=== PATIENT | female | born 1975 | race Caucasian/White ===

== ENCOUNTER → 2018-12-12 | Outpatient (CLI) | payer BC ==
--- NOTE | 2018-12-12 10:25 | MM ---
Reason for exam: additional evaluation requested from prior study. Last mammogram was performed 7 years and 2 months ago. History: Family history of breast cancer in mother and breast cancer in maternal grandmother. Benign excisional biopsy of the right breast. Took hormonal contraceptives for 2 years. Physical Findings: Nurse did not find any significant physical abnormalities on exam. MG 3D Diag Mammo W/Cad EBEN Bilateral CC and MLO view(s) were taken. Prior study comparison: November 14, 2017, mammogram. August 31, 2017, ultrasound. November 08, 2016, mammogram. The breast tissue is extremely dense which could obscure a lesion on mammography. No suspicious abnormality. Post surgical change on the right. No significant new findings when compared with previous films. These results were verbally communicated with the patient and result sheet given to the patient on 12/12/18. ASSESSMENT: Benign, BI-RAD 2 RECOMMENDATION: Routine screening mammogram of both breasts in 1 year.
--- NOTE | 2018-12-12 10:27 | USB ---
Reason for exam: additional evaluation requested from prior study. History: Family history of breast cancer in mother and breast cancer in maternal grandmother. Benign excisional biopsy of the right breast. Took hormonal contraceptives for 2 years. US Breast RT Right complete breast ultrasound includes all four quadrants, the retroareolar region and axilla. Finding demonstrates a 4 x 4 x 4mm cystic lesion at 12 o'clock prior 5 x 5 x 5mm on 11/14/17 and a 10 x 4 x 9mm cystic cluster of cysts at 9 o'clock. The other probably benign masses on the prior outside study are not reproduced and likely relate to resolved cysts. These results were verbally communicated with the patient and result sheet given to the patient on 12/12/18. ASSESSMENT: Benign, BI-RAD 2 RECOMMENDATION: Routine screening mammogram of both breasts in 1 year.
== END | disposition home or self-care (01) ==
LOC: RADMAMWWP 08:13
PROVIDERS: ATTEND Surgery
DX: R92.8 Other abnormal and inconclusive findings on diagnostic imaging of breast (principal)
CPT/HCPCS: 77062; 77066

== ENCOUNTER → 2019-11-14 | Outpatient (CLI) | payer BC ==
--- NOTE | 2019-11-14 18:30 | XR ---
EXAMINATION TYPE: XR toes RT DATE OF EXAM: 11/14/2019 COMPARISON: Right foot same date HISTORY: Stubbing injury fifth toe TECHNIQUE: Three-view right fifth digit FINDINGS: Soft tissue swelling is over the fifth digit right foot. Joint spaces are preserved. No dis placed fractures identified. IMPRESSION: 1. Prominent soft tissue swelling distal right fifth digit.
--- NOTE | 2019-11-14 18:31 | XR ---
EXAMINATION TYPE: XR foot complete RT DATE OF EXAM: 11/14/2019 COMPARISON: Right fifth digit same date HISTORY: Injury fifth digit TECHNIQUE: Three-view right foot FINDINGS: There is soft tissue swelling over the fifth digit. There is some angulation of the distal digit which may be old injury. No acute fractures evident. Mild soft tissue swelling may be over the distal fourth digit as well. Joint spaces are preserved. Plantar calcaneal heel spur is present. IMPRESSION: 1. Soft tissue swelling distal fourth and fifth digits. No acute displaced fractures identified. Fol low-up exams can be performed 7-10 days from acute trauma for continued pain.
== END | disposition home or self-care (01) ==
LOC: RADXRMAIN 18:09
PROVIDERS: ATTEND Internal Medicine Geriatric Medicine
DX: M79.89 Other specified soft tissue disorders (principal)

== ENCOUNTER 2022-05-06 06:23 | Day surgery (SDC) | payer BC ==
[2022-05-03 11:52] VITALS: BMI 25.2
--- NOTE | 2022-05-05 07:24 | P.HPOB ---
History of Present Illness H&P Date: 05/05/22 Chief Complaint: Dysfunctional uterine bleeding This patient is a pleasant 47-year-old 4 para 3 female whose had long- standing dysfunctional uterine bleeding that is interfering with daily activities. Patient's evaluation has included a normal pelvic ultrasound and also a normal endometrial biopsy. Patient and I have discussed options for treatment and she wishes to proceed with an endometrial ablation. Review of Systems Genitourinary: Reports as per HPI Menstruation: Reports menses variable, Reports period heavy Past Medical History Additional Past Medical History / Comment(s): EXCESSIVE AND FREQUENT MENSTRUAL CYCLES History of Any Multi-Drug Resistant Organisms: None Reported Past Surgical History: Breast Surgery, Orthopedic Surgery Additional Past Surgical History / Comment(s): RT BREAST BX-BENIGN. RT BUNIONECTOMY Past Anesthesia/Blood Transfusion Reactions: Postoperative Nausea & Vomiting (PONV) Past Psychological History: No Psychological Hx Reported Smoking Status: Never smoker Past Alcohol Use History: None Reported Past Drug Use History: None Reported - Past Family History Mother Family Medical History: Cancer Additional Family Medical History / Comment(s): BREAST Medications and Allergies Home Medications Medication Instructions Recorded Confirmed Type Fluticasone Nasal [place] [Flonase 2 spray EA NOSTRIL DAILY 05/03/22 05/03/22 History Nasal [place]] Allergies Allergy/AdvReac Type Severity Reaction Status Date / Time Penicillins Allergy Rash/Hives Verified 05/03/22 11:40 Sulfa (Sulfonamide Allergy Rash/Hives Verified 05/03/22 11:40 Antibiotics) Exam - OBG Physical Exam Abdomen: bowel sounds normal, no diffuse tenderness, no bruit present, no guarding noted, no hepatomegaly, no splenomegaly, no mass Vulva: both: normal Vagina: normal moisture, no discharge Cervix: no lesion, no discharge Uterus: normal size, normal contour Adnexa: both: normal Results Transvaginal ultrasound was normal and endometrial biopsy was normal as well. Assessment and Plan Assessment: This is a pleasant 47-year-old 4 para 3 female with long-standing dysfunctional uterine bleeding requesting endometrial ablation for treatment. Plan is hysteroscopy, D&C, and NovaSure endometrial ablation. The patient and I have discussed the surgery and risks and risks of infection, bleeding, possible uterine perforation, and/or thermal injury. All the patient's questions have been answered and a written consent is obtained. (1) Dysfunctional uterine bleeding Status: Acute Code(s): N93.8 - OTHER SPECIFIED ABNORMAL UTERINE AND VAGINAL BLEEDING SNOMED Code(s): 71071839281668
[~2022-05-06 06:23] MED LIST: DEXAMETHASONE SOD PHOSPHATE 4 MG/ML 1 ML VIAL IV ONE; LACTATED RINGERS 1,000 ML IV SCH; LIDOCAINE 1% (10MG/ML) FOR IV START INTRADERMA PRN; ONDANSETRON 4 MG/2 ML VIAL IVP ONE; Pre Op ABX Message 1 EACH MISC MISCELLANE ONE
[2022-05-06 06:51] VITALS: RESP 16
[2022-05-06] MEDS ORDERED: SCOPOLAMINE 1 MG/72 HR PATCH TRANSDERM ONE (06:52)
[2022-05-06] MEDS ORDERED: fentaNYL (PF) 50 MCG/ML 2 ML AMP IV PRN (07:00)
[2022-05-06] MEDS ORDERED: KETOROLAC 15 MG/ML 1 ML VIAL ONE (07:20)
[2022-05-06] MEDS ORDERED: MIDAZOLAM 2 MG/2 ML VIAL ONE (07:20)
[2022-05-06] MEDS ORDERED: fentaNYL (PF) 50 MCG/ML 2 ML AMP ONE (07:20)
[2022-05-06] MEDS ORDERED: PROPOFOL 10 MG/ML 20 ML VIAL IV ONE (07:20)
[2022-05-06] MEDS ORDERED: LIDOCAINE 2% INJ 20 MG/ML (2 ML VIAL) ONE (07:20)
--- NOTE | 2022-05-06 07:59 | P.OP ---
Date of Procedure: 05/06/22 Preoperative Diagnosis: Dysfunctional uterine bleeding Postoperative Diagnosis: Same Procedure(s) Performed: #1: Hysteroscopy. #2: Dilation and curettage. #3: NovaSure endometrial ablation Anesthesia: MAC Surgeon: Bernardo Conroy Estimated Blood Loss (ml): 20 Urine output (ml): 50 Pathology: other (Uterine curettings) Condition: stable Disposition: PACU Indications for Procedure: Please see dictated H&P for intimate details of this patient's admission. In brief summary this is a pleasant 47-year-old 4 para 3 female long- standing menorrhagia and dysfunctional bleeding who presents for trial of endometrial ablation for treatment. Patient understands this surgery and risks and risks of infection, bleeding, possible uterine perforation, and/or thermal injury. All the patient's questions are answered and a written consent is obtained. Operative Findings: This patient had a normal-appearing endometrial cavity Description of Procedure: This patient is taken to the operating room where she is laid supine position. She subsequent undergoes general mask anesthesia without incident. With an adequate level of anesthesia she's placed in dorsal lithotomy position. She has a vaginal perineal prep and drape. Examination under anesthesia shows a mid position uterus slightly enlarged. Weighted speculum placed in posterior vagina. Anterior lip of the cervix is gravid and Allis clamp. Uterus is then sounded to 10 cm. Gentle dilation of the cervix is done to allow the hysteroscope easily and the uterine cavity. Hysteroscopy is performed and endometrial cavity appears normal and measured a length of 6.0 cm. The hysteroscope was then removed and the cervix dilated more to allow a small curette easily uterine cavity a gentle but thorough 4 quadrant curettage is then done. With this done the NovaSure device is seated in place. It is measured a length of 6.0 cm it opens up to a width of 5.5 cm. It is then passes the cavity integrity test is then enabled 180 W setting for 61 seconds. NovaSure device is then removed. It appears to be intact. Hysteroscopy is then performed and the uterine cavity appears completely ablated up to the endocervix. With this done the procedure is then ended. The Allis clamp and weighted speculum removed. All counts are correct 3. There are no complications. Patient is awakened from anesthesia and taken recovery room satisfactory condition.
[2022-05-06 08:00] VITALS: TEMP 97.7
[2022-05-06] MEDS ORDERED: LACTATED RINGERS 1,000 ML IV ONE (08:35)
[2022-05-06 09:05] VITALS: BP 129/77; PULSE 64
== END 2022-05-06 09:42 | disposition home or self-care (01) ==
LOC: OR 06:23
PROVIDERS: ATTEND Obstetrics & Gynecology
DX: N93.8 Other specified abnormal uterine and vaginal bleeding (principal); N85.8 Other specified noninflammatory disorders of uterus; Z88.0 Allergy status to penicillin; Z88.2 Allergy status to sulfonamides
CPT/HCPCS: 81025; 58563; J2250; J1100; J2405; J3010; J1885; J2704; J2001; 88305

== ENCOUNTER → 2023-02-07 | Outpatient (CLI) | payer BC ==
[2023-02-07 10:58] LABS: Basophils # (A) 0.04 X 10*3/uL (0.00-0.10); Basophils % (A) 0.7 %; Eosinophils # (A) 0.15 X 10*3/uL (0.04-0.35); Eosinophils % (A) 2.6 %; HCT 38.4 % (37.2-46.3); HGB 12.7 d/dL (12.0-15.0); Lymphocytes # (A) 2.12 X 10*3/uL (0.90-5.00); Lymphocytes % (A) 37.1 %; MCH 31.4 pg (27.0-32.0); MCHC 33.1 d/dL (32.0-37.0); Mean Platelet Volume 11.9 FL (9.5-12.2); Monocytes % (A) 10.5 %; NRBC Per 100 WBC 0 X 10*3/uL (0.00-0.01); Neutrophils # (A) 2.78 X 10*3/uL (1.80-7.70); Neutrophils % (A) 48.7 %; Platelet Count 188 X 10*3/uL (140-440); RBC 4.04 X 10*6/uL (4.10-5.20); RDW 11.9 % (11.5-14.5); WBC 5.71 X 10*3/uL (4.50-10.00)
[2023-02-07 11:16] LABS: ALT 13 U/L (8-44); AST 19 U/L (13-35); Albumin 4.5 d/dL (3.8-4.9); Albumin/Globulin Ratio 2.05 Ratio (1.60-3.17); Alkaline Phosphatase 70 U/L (41-126); BUN/Creat Ratio 12.88 Ratio (12.00-20.00); Blood Urea Nitrogen 10.3 mg/dL (9.0-27.0); Calcium 9.5 mg/dL (8.7-10.3); Carbon Dioxide 27.7 mmol/L (21.6-31.8); Chloride 103 mmol/L (96-109); Chol/HDL Ratio 2.51 Ratio; Globulin 2.2 d/dL (1.6-3.3); Glucose 97 mg/dL (70-110); LDL Cholesterol,Calculated 120.5 mg/dL (0.0-131.0); Potassium 4.4 mmol/L (3.5-5.5); Sodium 140 mmol/L (135-145); T4, Free (Free Thyroxine) 1.45 ng/dL (0.80-1.80); Total Bilirubin 0.7 mg/dL (0.3-1.2); Total Protein 6.7 d/dL (6.2-8.2); VLDL Calculation 10.08 mg/dL (5.00-40.00)
== END | disposition home or self-care (01) ==
LOC: LABWHC1 07:00
PROVIDERS: ATTEND Internal Medicine Geriatric Medicine
DX: E78.5 Hyperlipidemia, unspecified (principal); E03.9 Hypothyroidism, unspecified; E55.9 Vitamin D deficiency, unspecified
CPT/HCPCS: 36415; 80053; 80061; 82306; 84439; 84443; 85025